=== PATIENT | female | born 1970 | race Caucasian/White ===

== ENCOUNTER 2024-12-23 09:38 | Emergency (ER) | payer MEDICAID ==
[~2024-12-23] VITALS: Ht 170.2 cm; Wt 98.0 kg
[2024-12-23 09:48] VITALS: TEMP 98.4
[2024-12-23] MEDS: POVIDONE-IODINE 10% 15 ML SOLUTION UD TP ONE (13:02)
[2024-12-23] MEDS: PERTUSS(ACELL),DIPH,TET/PF 0.5 ML SYRINGE [ADULT] IM. ONE (13:02)
[2024-12-23] MEDS ORDERED: SULF-261 PO (13:20)
[2024-12-23] MEDS ORDERED: IBUP-1492 PO (13:20)
[2024-12-23] MEDS: SULFAMETHOX/TRIMETH DS 800-160 MG/TABLET PO ONE (13:41)
[2024-12-23 13:42] VITALS: BP 111/69; PULSE 80; RESP 18; O2SAT 96
[2024-12-23] MEDS: IBUPROFEN 600 MG TABLET PO ONE (13:42)
== END 2024-12-23 13:47 | disposition home or self-care (01) ==
LOC: EMS 09:43
DX: L03.012 Cellulitis of left finger (principal); I11.0 Hypertensive heart disease with heart failure; I50.9 Heart failure, unspecified; Z91.040 Latex allergy status; Z88.1 Allergy status to other antibiotic agents
CPT/HCPCS: 99283; 10060; 90715; 90471; A4247

== ENCOUNTER 2024-12-26 10:43 | Emergency (ER) | payer MEDICAID ==
[~2024-12-26] VITALS: Ht 170.2 cm; Wt 11.8 kg
[~2024-12-26 10:43] MED LIST: IBUP-1492 PO; SULF-261 PO
[2024-12-26 11:00] VITALS: TEMP 98.6
[2024-12-26 14:00] VITALS: BP 118/74; PULSE 84; RESP 18; O2SAT 100
== END 2024-12-26 14:00 | disposition home or self-care (01) ==
LOC: EMS 10:44
DX: L03.011 Cellulitis of right finger (principal); Z88.1 Allergy status to other antibiotic agents; Z91.040 Latex allergy status
CPT/HCPCS: 99281; Z7502